=== PATIENT | male | born 1985 | race Caucasian/White ===

== ENCOUNTER → 2019-08-03 12:20 | Outpatient (BNVA) | payer SELFPAY | PROVIDERS: PCP Family Medicine; Visit Provider Nurse Practitioner Family | DX: S42.254A Nondisplaced fracture of greater tuberosity of right humerus, initial encounter for closed fracture (principal); W19.XXXA Unspecified fall, initial encounter | CPT/HCPCS: 73030 ==

== ENCOUNTER → 2019-09-20 10:10 | Outpatient (BNVA) | payer SELFPAY | PROVIDERS: PCP Family Medicine; Referring Provider Family Medicine; Visit Provider Orthopaedic Surgery | DX: M25.512 Pain in left shoulder (principal) | CPT/HCPCS: 73030 ==

== ENCOUNTER 2022-06-03 18:52 | Emergency (ER) | payer OTHER, SELFPAY ==
[2022-06-03 19:01] VITALS: BP 115/72; PULSE 79; RESP 16; TEMP 36.8; O2SAT 91
--- NOTE | 2022-06-03 19:06 | ECG_ITS ---
[facility] Test Date: 2022-06-03 Pat Name: Dale Strange Department: Room: Gender: Male [employer]: : 1985 Requested By: David Benavides Order Number: [id number] Jose MD: Ruben Baum M.D. Measurements Intervals [place] Rate: 80 P: 50 DE: 182 QRS: 38 QRSD: 102 T: 46 QT: 358 QTc: 415 Interpretive Statements SINUS RHYTHM No previous ECG available for comparison Electronically Signed On 06-04-2022 14:19:51 JUDICIAL REPORTER by Ruben Baum M.D. [id number]
--- NOTE | 2022-06-03 19:16 | ED_ITS ---
HPI - Syncope General: Chief Complaint: Syncope Stated Complaint: SYNCOPAL EPISODE Time Seen by Provider: 06/03/22 18:58 History of Present Illness: 37-year-old male in with concerns of a syncopal episode earlier tonight. 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 There is no seizure-like activity has had an episode of syncope previously. He is recently been sick with gastrointestinal bug. Today he does not have fever or diarrhea but yesterday he was feeling pretty poorly with nausea vomiting and diarrhea. Patient has not been eating and drinking as much is normal. Patient denies any fever or chills. No chest pain or shortness of breath. He did feel like he was going to pass out just prior to having a syncopal episode. He did not hurt himself he did not bite his tongue or have any injuries. He did not lose control of his bowel or bladder. Review of Systems General: Reports: 10 or more systems reviewed and unremarkable except in HPI and below PFSH ED PFSH: Medical History (Updated 06/03/22 @ 21:55 by David Benavides DO) Asthma Chronic back pain Intervertebral disc disorders with radiculopathy, lumbar region Surgical History No pertinent past surgical history Family History Other Hypertension Social History Smoking and tobacco status: current every day smoker cigarettes Packs smoked per day: 0.5 Alcohol intake: current Alcohol intake frequency: 3 or more drinks per day Physical Exam Const: COMMON NORMALS: no acute distress, patient oriented x3, alert and well nourished HENMT: COMMON NORMALS: normocephalic HEAD & SCALP: normocephalic Eye: COMMON NORMALS: Equal, round and reactive pupils present, EOMs intact bilaterally and conjunctivae normal CONJUNCTIVA: Yes conjunctivae normal PUPIL: Yes Equal, round and reactive pupils present Neck/C-Spine: COMMON NORMALS: full ROM, no lymphadenopathy, supple, no meningeal signs, no JVD and Thyroid normal THYROID: Thyroid normal Chest: COMMONS NORMALS: normal inspection of the chest and normal palpation of entire chest wall Resp: COMMON NORMALS: normal respiratory effort, No retractions, No use of ac cessory muscles, clear to auscultation bilaterally and percussion normal AUSCULTATION: clear to auscultation bilaterally PERCUSSION: percussion normal Cardio: COMMON NORMALS: no JVD OTHER: Regular rate and rhythm GI: COMMON NORMALS: Normal to inspection, nondistended, normoactive bowel s ounds present, Soft to palpation, non-tender, No hepatosplenomegaly present, no masses and no bruits PALPATION: Yes Soft to palpation and Yes No hepatosplenomegaly present : COMMON NORMALS: Yes no CVA tenderness BLADDER/KIDNEY EXAM: Yes no CVA tenderness Back/Pelvis: COMMON NORMALS: no CVA tenderness Extremity: COMMON NORMALS: normal to inspection, full ROM, capillary refill normal, no joint enlargement, no clubbing, cyanosis or edema, no calf tenderness and no pedal edema Neuro: COMMON NORMALS: patient oriented x3 SENSORIUM/ORIENTATION: Yes alert MENINGEAL SIGNS: Yes no meningeal signs Skin: COMMON NORMALS: no rashes or lesions noted, turgor normal and no jaundice GENERAL SKIN EXAM: no rashes or lesions noted and turgor normal Course Vital Signs: Vital signs: Vital Signs Temperature 98.2 F 06/03/22 19:01 Pulse Rate 74 06/03/22 21:29 Respiratory Rate 16 06/03/22 21:29 Blood Pressure 124/78 06/03/22 21:29 Pulse Oximetry 95 06/03/22 21:29 Oxygen Delivery Me thod 06/03/22 21:29 MDM - Syncope Medical Decision Making 37-year-old male in with a brief syncopal episode. This sounds like volume depletion and/or vasovagal syncope. We will check routine labs and give him some IV fluids check an electrocardiogram. His electrocardiogram revealed a normal sinus rhythm with normal intervals and axis he does not have a prolonged QT. His work-up with the labs showed mild volume depletion and elevated liver enzymes but no other significant findings. He felt significantly better after intervention in the emergency department with fluids denied any symptoms and desired to go home and return to work tomorrow which I think is fine. Differential Diagnosis Likely syncope due to orthostatic hypotension, vasovagal syncope, complete atrioventricular block, subarachnoid hemorrhage, pulmonary embolism and dehydration Lab Data 06/03/22 19:00 06/03/22 19:00 Laboratory Results WBC 5.3 10^3/uL (4.0-10.0) 06/03/22 19:00 RBC 4.56 10^6/uL (4.1-5.3) 06/03/22 19:00 Hgb 13.7 g/dL (11.7-16.6) 06/03/22 19:00 Hct 40.8 % (42.0-52.0) L 06/03/22 19:00 MCV 89.5 fl (80-94) 06/03/22 19:00 MCH 30.0 pg (28.0-34.0) 06/03/22 19:00 MCHC 33.6 g/dL (30.0-36.0) 06/03/22 19:00 RDW 11.9 % (12.1-15.1) L 06/03/22 19:00 Plt Count 145 10^3/cmm (130-400) 06/03/22 19:00 MPV 10.7 fL (7.4-10.4) H 06/03/22 19:00 Neut % (Auto) 72.9 % 06/03/22 19:00 Lymph % (Auto) 20.4 % 06/03/22 19:00 Stark % (Auto) 5.7 % 06/03/22 19:00 Eos % (Auto) 0.4 % 06/03/22 19:00 Baso % (Auto) 0.2 % 06/03/22 19:00 Neut # (Auto) 3.86 10^3/uL (1.8-7.7) 06/03/22 19:00 Lymph # (Auto) 1.1 10^3/uL (0.8-4.8) 06/03/22 19:00 Stark # (Auto) 0.3 10^3/uL (0.2-0.9) 06/03/22 19:00 Eos # (Auto) 0.0 10^3/uL (0.0-0.8) 06/03/22 19:00 Baso # (Auto) 0.0 10^3/uL (0.0-0.1) 06/03/22 19:00 Nucleated RBC % (auto) 0 % 06/03/22 19:00 Nucleated RBCs # 0.0 /100WBC 06/03/22 19:00 Sodium 137 mmol/L (136-145) 06/03/22 19:00 Potassium 3.5 mmol/L (3.5-5.1) 06/03/22 19:00 Chloride 100 mmol/L (98-107) 06/03/22 19:00 Carbon Dioxide 25 mmol/L (22-29) 06/03/22 19:00 Anion Gap 15.5 (5-19) 06/03/22 19:00 BUN 23 mg/dL (6-20) H 06/03/22 19:00 Creatinine 0.9 mg/dL (0.7-1.2) 06/03/22 19:00 GFR Calculation 96.0 mL/min (90-130) 06/03/22 19:00 Glucose 90 mg/dL (65-115) 06/03/22 19:00 Calculated Osmolality 287 mOsm/kg (285-295) 06/03/22 19:00 Calcium 8.5 mg/dL (8.5-10.5) 06/03/22 19:00 Total Bilirubin 0.2 mg/dL (0.15-1.2) 06/03/22 19:00 AST 49 U/L (0-40) H 06/03/22 19:00 ALT 45 U/L (0-41) H 06/03/22 19:00 Alkaline Phosphatase 52 U/L (40-130) 06/03/22 19:00 Total Protein 6.4 g/dL (6.6-8.7) L 06/03/22 19:00 Albumin 4.2 g/dL (3.5-5.2) 06/03/22 19:00 Globulin 2.2 g/dL (1.3-4.6) 06/03/22 19:00 Discharge Plan Discharge Patient Disposition: Home Clinical Impression: Syncope, Elevated liver enzymes Condition: Stable Prescriptions: No Action diclofenac sodium 75 mg tablet,delayed release (DR/EC) 75 mg PO BID Qty: 60 0RF Discharge Orders: Discharge ED (Routine); Ordered 06/03/22 Ordered By: David Benavides Referrals: Libby Herman DO [Primary Care Provider] - Discharge Diet: Advance as tolerated Patient Instructions: Opioid Safety, Pain Management Activity Restrictions/Additional Instructions: 1. Rest, push fluids and can return to work tomorrow. 2. Follow-up with primary care for recheck and further work-up on elevated liver enzymes 3. Return to the emergency department for new or worsening or recurrent syncope Coding Level of Care Code ED [employer] for Brian Corea
[2022-06-03] MEDS: sodium chloride 0.9% 1,000 ML 999 ML IV (19:26)
[2022-06-03 19:34] LABS: Basophils % 0.2 %; Eosinophils % 0.4 %; Hematocrit 40.8 % (42.0-52.0); Hemoglobin 13.7 g/dL (11.7-16.6); Lymphocytes # 1.1 10^3/uL (0.8-4.8); Lymphocytes % 20.4 %; Mean Corpuscular HGB Conc 33.6 g/dL (30.0-36.0); Mean Corpuscular Volume 89.5 fl (80-94); Mean Platelet Volume 10.7 fL (7.4-10.4); Monocytes # 0.3 10^3/uL (0.2-0.9); Monocytes % 5.7 %; Neutrophils # 3.86 10^3/uL (1.8-7.7); Neutrophils % 72.9 %; Nucleated Red Blood Cells % 0 %; Platelet Count 145 10^3/cmm (130-400); Red Blood Count 4.56 10^6/uL (4.1-5.3); Red Cell Distribution Width 11.9 % (12.1-15.1); White Blood Count 5.3 10^3/uL (4.0-10.0)
[2022-06-03 19:47] LABS: Alanine Aminotransferase 45 U/L (0-41); Albumin Level 4.2 g/dL (3.5-5.2); Alkaline Phosphatase 52 U/L (40-130); Anion Gap 15.5 (5-19); Aspartate Amino Transferase 49 U/L (0-40); Blood Urea Nitrogen 23 mg/dL (6-20); Calcium 8.5 mg/dL (8.5-10.5); Carbon Dioxide 25 mmol/L (22-29); Chloride 100 mmol/L (98-107); Globulin 2.2 g/dL (1.3-4.6); Glucose 90 mg/dL (65-115); Osmolality Calculated 287 mOsm/kg (285-295); Potassium 3.5 mmol/L (3.5-5.1); Sodium 137 mmol/L (136-145); Total Bilirubin 0.2 mg/dL (0.15-1.2); Total Protein 6.4 g/dL (6.6-8.7)
[2022-06-03 19:57] VITALS: BP 109/78; PULSE 67; RESP 18; O2SAT 97
[2022-06-03 21:29] VITALS: BP 124/78; PULSE 74; RESP 16; O2SAT 95
== END 2022-06-03 22:08 | disposition home or self-care (01) ==
PROVIDERS: Emergency Provider Family Medicine; PCP Family Medicine
DX: R55 Syncope and collapse (principal); R74.8 Abnormal levels of other serum enzymes
CPT/HCPCS: 80053; 85025; 93005; 96360; 99284; J7030

== ENCOUNTER 2022-11-03 17:06 | Emergency (ER) | payer SELFPAY ==
[2022-11-03 17:08] VITALS: BP 102/64; PULSE 102; RESP 16; TEMP 36.4; O2SAT 95; BMI 23.0
--- NOTE | 2022-11-03 17:20 | W.ED.ANIMALB ---
HPI - Animal Bite General: Chief Complaint: Animal Bite Stated Complaint: Bee Sting, SOB, Itching, Light headed Time Seen by Provider: 11/03/22 17:19 History of Present Illness: 37-year-old male patient comes in today for complaints of multiple stings from a wasp or hornet. Patient was working outside when he near the ground nest of the wasp. Patient ended up having stings to the left upper arm and left posterior back. Patient reports itchiness all over and pain at the site of sting. No respiratory difficulty is noted. Patient does have some mild redness and swelling at the site of bite. Patient denies no allergies to insect stings. Due to increased itchiness all over patient came to the ER. Patient has not taken any medication for the itching or reaction to insect bite. Patient reports no chronic medical problems. Review of Systems General: Reports: 10 or more systems reviewed and unremarkable except in HPI and below Skin/Breast: Reports: pruritus and new lesions [facility] ED PFSH: Medical History (Updated 11/03/22 @ 17:37 by VALENTÍN Topete) Asthma Chronic back pain Intervertebral disc disorders with radiculopathy, lumbar region Surgical History No pertinent past surgical history Family History Other Hypertension Social History Smoking and tobacco status: current every day smoker cigarettes Packs smoked per day: 0.5 Alcohol intake: current Alcohol intake frequency: 3 or more drinks per day Substance/Drug Use: never Physical Exam Const: COMMON NORMALS: alert HENMT: COMMON NORMALS: normocephalic HEAD & SCALP: normocephalic Neck/C-Spine: COMMON NORMALS: full ROM Resp: COMMON NORMALS: normal respiratory effort and clear to auscultation bilaterally AUSCULTATION: clear to auscultation bilaterally Cardio: COMMON NORMALS: regular rate and regular rhythm RATE: regular rate RHYTHM: regular rhythm GI: COMMON NORMALS: Soft to palpation PALPATION: Yes Soft to palpation Back/Pelvis: COMMON NORMALS: thoracic and lumbar spine normal to inspection Extremity: COMMON NORMALS: normal to inspection Neuro: SENSORIUM/ORIENTATION: Yes alert Skin: NARRATIVE SKIN EXAM: Area of redness to the left posterior upper arm, and posterior left upper back. Redness has a centralized punctate lesion. Course Vital Signs: Vital signs: Vital Signs Temperature 97.6 F 11/03/22 17:08 Pulse Rate 102 H 11/03/22 17:08 Respiratory Rate 16 11/03/22 17:08 Blood Pressure 102/64 11/03/22 17:08 Pulse Oximetry 95 11/03/22 17:08 Oxygen Delivery Me thod Room Air 11/03/22 17:08 MDM - Animal Bite Medical Decision Making Patient comes in today for multiple things from wasp and increased itching. On exam patient appears nontoxic. Patient has 2 wasp things noted 1 to the left upper arm and 1 to the left posterior back with surrounding erythema and centralized punctate lesion. Lungs are clear to auscultation. Posterior pharynx is pink moist. Abdomen soft nontender. No significant swelling is noted. Differential diagnosis includes but not limited to localized reaction to insect bite, anaphylaxis, allergic reaction. Patient was given 30 mg Toradol IM for pain, 50 mg of Benadryl for itching, and 10 mg of dexamethasone for inflammation and swelling. Patient had significant improvement of symptoms and was released to home. Discharge Plan Discharge Patient Disposition: Home Clinical Impression: Accidental wasp sting Condition: Stable Prescriptions: No Action diclofenac sodium 75 mg tablet,delayed release (DR/EC) 75 mg PO BID Qty: 60 0RF Discharge Orders: Discharge ED (Routine); Ordered 11/03/22 Ordered By: Esteban Ruff Referrals: Libby Herman DO [Primary Care Provider] - Discharge Diet: Usual diet Discharge Activity: Increase activity as tolerated Patient Instructions: Insect Bite or Sting (ED) Activity Restrictions/Additional Instructions: Use Benadryl, diphenhydramine, 1 tablet every 4 hours as needed for itching or rash. Use acetaminophen and/or ibuprofen as needed for pain. Drink plenty of water with medication. You may also use some hydrocortisone cream to the site of the insect bite to help with itching and redness. Follow-up with primary care as needed. Return to ED for new concerns or worsening symptoms such as severe chest pain, increased shortness of breath, or high fever greater than 100.4. Coding Level of Care Code ED Director [employer] [facility] for Brian Corea
[2022-11-03] MEDS: dexamethasone 4 mg Tablet 10 MG PO (17:36)
[2022-11-03] MEDS: ketorolac 30 mg/mL INJ IM (17:36)
[2022-11-03] MEDS: diphenhydrAMINE 50 mg/mL SDV 1mL IM (17:36)
== END 2022-11-03 18:04 | disposition home or self-care (01) ==
PROVIDERS: Emergency Provider Nurse Practitioner Family; PCP Family Medicine
DX: T63.461A Toxic effect of venom of wasps, accidental (unintentional), initial encounter (principal); F17.210 Nicotine dependence, cigarettes, uncomplicated
CPT/HCPCS: 96372; 99284; J1200; J1885; J8540